=== PATIENT | male | born 1960 | race Caucasian/White ===

== ENCOUNTER 2021-10-05 15:24 | Emergency (ER) | payer OTHER ==
[~2021-10-05] VITALS: Ht 177.8 cm; Wt 95.3 kg
[2021-10-05 15:32] VITALS: BP 133/76
[2021-10-05] MEDS: ONDANSETRON 4 MG ODT PO ONE (15:51)
[2021-10-05 17:13] VITALS: BP 133/76
== END 2021-10-05 17:14 | disposition home or self-care (01) ==
LOC: MED 15:24
DX: S09.90XA Unspecified injury of head, initial encounter (principal); F10.129 Alcohol abuse with intoxication, unspecified; I10 Essential (primary) hypertension; Z88.6 Allergy status to analgesic agent; W19.XXXA Unspecified fall, initial encounter; Y93.89 Activity, other specified; Y92.89 Other specified places as the place of occurrence of the external cause; Y99.8 Other external cause status; Y90.9 Presence of alcohol in blood, level not specified
CPT/HCPCS: 70450; 72125; 90471; 90715; 99285; Q0162; 99284

== ENCOUNTER → 2021-10-22 11:51 | Emergency (ER) | payer OTHER ==
--- NOTE | 2021-10-22 11:51 | NUR ---
PT WAS PICKED UP BY HIS . PT WAS NOT TRIAGED. PT WAS WAITING OUTSIDE IN AMBULANCE BEFORE HE COULD BE TRIAGED. PT CALLED HIS AND WANTED TO GO HOME. TOOK HIM HOME.
== END | disposition left against medical advice (07) ==
LOC: MED 11:51
DX: E16.2 Hypoglycemia, unspecified (principal); Z53.21 Procedure and treatment not carried out due to patient leaving prior to being seen by health care provider

== ENCOUNTER 2021-11-25 08:27 | Observation (INO) | payer OTHER, SELFPAY ==
[~2021-11-25] VITALS: Ht 177.8 cm; Wt 95.3 kg
--- NOTE | 2021-11-25 08:32 | NUR ---
PT TO ER BED 8 VIA [facility]
--- NOTE | 2021-11-25 08:35 | NUR ---
PATIENT CONNECTED TO BEDSIDE MONITOR, SAFETY PRECAUTIONS PUT INTO PLACE, WILL CONTINUE TO MONITOR.
[2021-11-25 08:37] VITALS: BP 114/62
--- NOTE | 2021-11-25 08:55 | NUR ---
[facility] SPECIMEN COLLECTED AND HANDED TO SUPA KEITA.
[2021-11-25 09:20] LABS: BASOPHILS # (AUTO) 0.1 K/uL (0.00-0.22); BASOPHILS % (AUTO) 1.2 % (0.0-2.0); EOSINOPHILS # (AUTO) 0.4 K/uL (0-0.4); EOSINOPHILS % (AUTO) 4.5 % (0.0-4.0); HEMATOCRIT 38.6 % (36-52); HEMOGLOBIN 12.9 g/dL (12.0-18.0); LYMPHOCYTES # (AUTO) 1.3 K/uL (2.0-11.5); LYMPHOCYTES % (AUTO) 14.2 % (20.5-51.1); MEAN CORPUSCULAR HEMOGLOBIN 30 pg (27-31); MEAN CORPUSCULAR HGB CONC 34 g/dL (33-37); MEAN CORPUSCULAR VOLUME 90.2 fL (80-94); MONOCYTES # (AUTO) 1.2 K/uL (0.8-1.0); MONOCYTES % (AUTO) 13.5 % (1.7-9.3); NEUTROPHILS # (AUTO) 6.2 K/uL (1.8-7.7); NEUTROPHILS % (AUTO) 66.6 % (42.2-75.2); PLATELET COUNT (AUTO) 157 K/uL (140-450); RED BLOOD CELL COUNT(AUTO) 4.28 MIL/uL (4.20-6.10); RED CELL DISTRIBUTION WIDTH 16.4 % (11.6-13.7); WHITE BLOOD COUNT (AUTO) 9.3 K/uL (4.8-10.8)
--- NOTE | 2021-11-25 09:24 | NUR ---
PATIENT BS READING 67, DR. JONES MADE AWARE. PROVIDED ORANGE JUICE AT BEDSIDE.
--- NOTE | 2021-11-25 09:30 | NUR ---
PATIENT PROVIDED WITH BREAKFAST TRAY AT BEDSIDE, ALL PATIENT NEEDS MET AT THIS TIME.
--- NOTE | 2021-11-25 09:35 | NUR ---
61/M BIBA FROM HOME. EMS STATES PATIENTS FAMILY CALLED 911 STATING PATIENT WAS FOUND UNRESPONSIVE AND DROOLING IN BED. EMS STATES PATIENTS BLOOD SUGAR READ "LOW" STATES IV WAS STARTED AND PATIENT WAS GIVEN D10 RAISING SUGAR TO 164. PATIENT AOX4, GCS 15 UPON ARRIVAL. BLOOD SUGAR UPON ARRIVAL TO ED IS 83, PATIENT DENIES FALLING OR HEAD INJURY, NO COMPLAINTS OF PAIN AT THIS TIME. PATIENT PLACED IN GOWN AND ON BEDSIDE GEAR HOBBER OPERATOR UPON ARRIVAL, DR. JONES EVALUATED PATIENT BEDSIDE UPON ARRIVAL TO ED.
[2021-11-25 09:48] LABS: ALBUMIN 2.6 g/dL (3.4-5.0); ANION GAP 10.3 (8-16); CARBON DIOXIDE 28.5 mmol/L (21-32); CREATININE 1.4 mg/dL (0.6-1.3); TOTAL BILIRUBIN 1.5 mg/dL (0.0-1.0)
--- NOTE | 2021-11-25 09:50 | NUR ---
PATIENT SITTING QUIETLY IN BED, NO SIGNS OF DISTRESS NOTED AT THIS TIME. WILL CONTINUE TO MONITOR
[2021-11-25] MEDS ORDERED: PRED20TA5 PO (09:51)
[2021-11-25] MEDS ORDERED: [UNRECOGNIZED DRUG - CODE] PO (09:51)
[2021-11-25] MEDS ORDERED: KEN.1C TP (09:51)
[2021-11-25] MEDS ORDERED: CALC-1030 PO (09:51)
[2021-11-25] MEDS ORDERED: THIA-34 PO (09:51)
[2021-11-25] MEDS ORDERED: ACT30 PO (09:51)
[2021-11-25] MEDS ORDERED: ATA25 PO (09:51)
[2021-11-25] MEDS ORDERED: ASCO500T95 PO (09:51)
[2021-11-25] MEDS ORDERED: SPIR50TA PO (09:51)
[2021-11-25] MEDS ORDERED: [UNRECOGNIZED DRUG - CODE] PO (09:51)
[2021-11-25] MEDS ORDERED: POTA10TA70 PO (09:51)
[2021-11-25] MEDS ORDERED: LACT10SO4 PO (09:51)
[2021-11-25] MEDS ORDERED: CLOB-114 TP (09:51)
--- NOTE | 2021-11-25 10:00 | NUR ---
CRITICAL LAB REPORTED TO DR. JONES.
[2021-11-25 10:01] LABS: POTASSIUM 2.8 mmol/L (3.5-5.1)
[2021-11-25] MEDS ORDERED: KCL 20 MEQ/WATER INJ PREMIX 100 ML IV ONE (10:10)
[2021-11-25] MEDS ORDERED: MAG SULF 2000 MG/WATER PREMIX 50 ML IV ONE (10:10)
--- NOTE | 2021-11-25 10:15 | NUR ---
PATIENT PROVIDED WITH URINAL AT BEDSIDE.
--- NOTE | 2021-11-25 11:44 | NUR ---
PATIENT RESTING COMFORTABLY IN BED, NO SIGNS OF DISTRESS NOTED AT THIS TIME. SAFETY MEASURES PUT INTO PLACE. WILL CONTINUE TO MONITOR.
--- NOTE | 2021-11-25 12:08 | NUR ---
SPOKE WITH PATIENTS EXECUTIVE ASSISTANT TO GENERAL COUNSEL LORNA, GIVEN CURRENT PATIENT STATUS. REQUESTING CLINICALS BE FAXED OVER, STATES PATIENT OKAY TO BE ADMITTED HERE.
[2021-11-25] MEDS ORDERED: KCL 20 MEQ/WATER INJ PREMIX 200 ML IV PRN (12:30)
[2021-11-25] MEDS ORDERED: ONDANSETRON 4 MG/2 ML VIAL IVP PRN (12:30)
[2021-11-25] MEDS ORDERED: MAG SULF 2000 MG/WATER PREMIX 50 ML IV PRN (12:30)
[2021-11-25] MEDS ORDERED: HYDROcodone/APAP 5/325 MG 1 TAB TAB PO PRN (12:30)
[2021-11-25] MEDS ORDERED: ACETAMINOPHEN 325 MG TAB PO PRN (12:30)
[2021-11-25] MEDS ORDERED: MAGNESIUM OXIDE 400 MG TAB PO PRN (12:30)
[2021-11-25] MEDS ORDERED: POTASSIUM CHLORIDE 10 MEQ TABER PO PRN (12:30)
[2021-11-25] MEDS ORDERED: DEXTROSE 50% 50 ML SYR IVP PRN (12:55)
--- NOTE | 2021-11-25 13:00 | NUR ---
PATIENT AMBULATED TO RESTROOM WITH STEADY GAIT.
--- NOTE | 2021-11-25 13:00 | NUR ---
PATIENT PROVIDED URINE SAMPLE, COLLECTION AND DIP COMPLETED.
--- NOTE | 2021-11-25 13:05 | NUR ---
PATIENT AMBULATED BACK TO ROOM WITH STEADY GAIT, RECONNECTED TO BEDSIDE MONITOR.
[2021-11-25] MEDS: BLOOD GLUCOSE MONITORING 1 DEV DEV FS SCH ×2 (13:23→21:00)
--- NOTE | 2021-11-25 13:38 | NUR ---
OBTAINED VERBAL CONSENT TO SPEAK TO PATIENT'S DAUGHTER NIKKI FOR UPDATES.
--- NOTE | 2021-11-25 13:38 | NUR ---
DAUGHTER NIKKI LEFT PHONE NUMBER TO CALL FOR UPDATES
[2021-11-25] MEDS ORDERED: DEXTROSE 10% 250 ML IV PRN (13:40)
[2021-11-25] MEDS: INSULIN LISPRO SLIDING SCALE 100 UNITS/ML VIAL SUBQ PRN ×2 (13:51→22:14)
--- NOTE | 2021-11-25 14:04 | NUR ---
DR AC EVALUATING PATIENT AT BEDSIDE
--- NOTE | 2021-11-25 18:28 | NUR ---
SPOKE WITH PATIENT'S JESSE MACK FOR STATUS UPDATE.
--- NOTE | 2021-11-25 19:18 | NUR ---
Pt report given to WILFRIDO WILCOX. Transfer of care at this time.
--- NOTE | 2021-11-25 19:28 | NUR ---
assumed patient care, on assesment pt is aox4, denies any active complaints at this time. Pt awaiting for tele bed.
--- NOTE | 2021-11-26 01:00 | NUR ---
Patient requesting to have his clobetasol cream refilled by admitting MD. Will hand-off to receiving staff in AM.
--- NOTE | 2021-11-26 06:45 | NUR ---
Blood sugar checked 160mg/dl. Vital signs stable. No active complaints at this time.
--- NOTE | 2021-11-26 07:26 | NUR ---
hand-off to Galina ANNA for continuity of care.
--- NOTE | 2021-11-26 07:28 | NUR ---
REPORT RECEIVED FROM WILFRIDO WILCOX FOR TRANSFER OF CARE
[2021-11-26] MEDS: BLOOD GLUCOSE MONITORING 1 DEV DEV FS SCH ×3 (07:33→16:30)
[2021-11-26] MEDS: INSULIN LISPRO SLIDING SCALE 100 UNITS/ML VIAL SUBQ PRN ×2 (07:39→11:38)
--- NOTE | 2021-11-26 07:40 | NUR ---
PATIENT CURRENTLY RESTING IN ROOM ON PHONE. PROVIDED PATIENT WITH NEW SOCKS. WILL CONTINUE TO MONITOR
--- NOTE | 2021-11-26 08:06 | NUR ---
PT PROVIDED WITH BREAKFAST BEDSIDE.
[2021-11-26] MEDS ORDERED: DOCUSATE SODIUM 100 MG GELCAP PO SCH (09:00)
[2021-11-26 09:26] LABS: BASOPHILS % (AUTO) 0.5 % (0.0-2.0); EOSINOPHILS # (AUTO) 0.6 K/uL (0-0.4); EOSINOPHILS % (AUTO) 7.9 % (0.0-4.0); HEMATOCRIT 38.3 % (36-52); HEMOGLOBIN 12.9 g/dL (12.0-18.0); LYMPHOCYTES # (AUTO) 1.4 K/uL (2.0-11.5); LYMPHOCYTES % (AUTO) 18.8 % (20.5-51.1); MEAN CORPUSCULAR HEMOGLOBIN 31 pg (27-31); MEAN CORPUSCULAR HGB CONC 34 g/dL (33-37); MEAN CORPUSCULAR VOLUME 90.2 fL (80-94); MONOCYTES # (AUTO) 0.7 K/uL (0.8-1.0); MONOCYTES % (AUTO) 9.7 % (1.7-9.3); NEUTROPHILS # (AUTO) 4.7 K/uL (1.8-7.7); NEUTROPHILS % (AUTO) 63.1 % (42.2-75.2); PLATELET COUNT (AUTO) 149 K/uL (140-450); RED BLOOD CELL COUNT(AUTO) 4.25 MIL/uL (4.20-6.10); RED CELL DISTRIBUTION WIDTH 16.7 % (11.6-13.7); WHITE BLOOD COUNT (AUTO) 7.5 K/uL (4.8-10.8)
[2021-11-26 09:37] LABS: ALBUMIN 2.6 g/dL (3.4-5.0); ANION GAP 10.8 (8-16); CARBON DIOXIDE 27.1 mmol/L (21-32); CREATININE 1.3 mg/dL (0.6-1.3); MAGNESIUM 1.6 mg/dL (1.8-2.4); POTASSIUM 3.9 mmol/L (3.5-5.1); TOTAL BILIRUBIN 1.8 mg/dL (0.0-1.0)
--- NOTE | 2021-11-26 10:05 | NUR ---
PT AMBULATED TO RESTROOM WITH STEADY GAIT
--- NOTE | 2021-11-26 10:27 | NUR ---
Patient appears to be resting comfortably in bed. Vital Signs within normal limits. Respirations even and unlabored.
--- NOTE | 2021-11-26 11:51 | NUR ---
PATIENT PROVIDED WITH LUNCH TRAY BEDSIDE
--- NOTE | 2021-11-26 14:30 | NUR ---
Patient appears to be resting comfortably in bed. Vital Signs within normal limits. Respirations even and unlabored.
[2021-11-26 16:24] VITALS: BP 128/50
--- NOTE | 2021-11-26 16:25 | NUR ---
PT AMBULATED TO AND FROM RESTROOM WITH STEADY GAIT
--- NOTE | 2021-11-26 16:37 | NUR ---
Patient discharged with v/s stable. Written and verbal after care instructions given and explained. Patient verbalized understanding. Ambulatory with steady gait. All questions addressed prior to discharge. Advised to follow up with PMD.
[2021-11-26] MEDS ORDERED: SPIRONOLACTONE 25 MG TAB PO SCH (21:00)
[2021-11-26] MEDS ORDERED: LACTULOSE 20 GM/30 ML UDC PO SCH (21:00)
[2021-11-27] MEDS ORDERED: ASCORBIC ACID 500 MG TAB PO SCH (09:00)
[2021-11-27] MEDS ORDERED: THIAMINE 100 MG TAB PO SCH (09:00)
== END 2021-11-26 16:37 | disposition home or self-care (01) ==
LOC: MED 08:27 → MTU 12:30
PROVIDERS: ADMIT Hospitalist; ATTEND Hospitalist
DX: E11.649 Type 2 diabetes mellitus with hypoglycemia without coma (principal); Z20.822 Contact with and (suspected) exposure to COVID-19; G93.41 Metabolic encephalopathy; L12.0 Bullous pemphigoid; E78.5 Hyperlipidemia, unspecified; E87.6 Hypokalemia; D72.829 Elevated white blood cell count, unspecified; R53.1 Weakness; Z79.899 Other long term (current) drug therapy; Z79.4 Long term (current) use of insulin
CPT/HCPCS: 36415; 71045; 80053; 82140; 82948; 83735; 84484; 85025; 87426; 93005; 96365; 96368; 96372; 99285; G0378; J1815; J3475; J3480; Q0092